=== PATIENT | female | born 2000 | race African-American/Black ===

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

== ENCOUNTER 2020-07-27 23:08 | Emergency (ER) | payer OTHER, MEDICAID ==
[~2020-07-27] VITALS: Ht 170.2 cm; Wt 77.3 kg
[2020-07-27 23:15] VITALS: BP 142/85
[2020-07-27] MEDS ORDERED: acetaminophen 325mg tablet PO ONE (23:45)
[2020-07-27] MEDS ORDERED: ibuprofen tablet 400 MG TABLET PO ONE (23:45)
[2020-07-28 00:55] LABS: CLARITY,URINE CLEAR (Clear); COLOR,URINE YELLOW (Yellow); GLUCOSE, URINE NEGATIVE (Neg); KETONES,URINE TRACE mg/dl (Neg); LEUKOCYTE ESTERASE ,URINE NEGATIVE (Neg); NITRITES, URINE NEGATIVE (Neg); OCCULT BLOOD,URINE NEGATIVE (Neg); PROTEIN,URINE NEGATIVE (Neg); UA COLLECTION TYPE CLN CATCH MIDSTREAM; UROBILINOGEN,URINE 0.2 E.U/dL (0.2-1.0)
[2020-07-28 00:57] LABS: URINE HCG NEGATIVE (NEG)
== END 2020-07-28 05:22 | disposition home or self-care (01) ==
LOC: ER 23:09
DX: S50.811A Abrasion of right forearm, initial encounter (principal); S50.812A Abrasion of left forearm, initial encounter; M54.2 Cervicalgia; J45.909 Unspecified asthma, uncomplicated; V89.2XXA Person injured in unspecified motor-vehicle accident, traffic, initial encounter; Y93.89 Activity, other specified; Y92.89 Other specified places as the place of occurrence of the external cause; Y99.8 Other external cause status
CPT/HCPCS: 71045; 81003; 81025; 99284